=== PATIENT | female | born 1990 ===

== ENCOUNTER 2023-07-01 07:47 | Emergency (ER) | payer OTHER ==
[~2023-07-01] VITALS: Ht 162.6 cm; Wt 63.5 kg
[2023-07-01 12:30] VITALS: BP 129/70
== END 2023-07-01 13:00 | disposition home or self-care (01) ==
LOC: ER 07:47
DX: S43.015A Anterior dislocation of left humerus, initial encounter (principal); V49.9XXA Car occupant (driver) (passenger) injured in unspecified traffic accident, initial encounter
CPT/HCPCS: 23650; 73030; 96374-59; 96375-59; 99285-25; A9270; J1885; J2704; J3010; J7030